=== PATIENT | female | born 1965 | race African-American/Black ===

== ENCOUNTER 2020-02-01 11:13 | Inpatient (IN) | payer MEDICARE, MEDICAID ==
[~2020-02-01] VITALS: Ht 157.5 cm; Wt 83.9 kg
[~2020-02-01 11:13] MED LIST: DILT180C48 PO; HERB1CAP2 PO; IBUP-1008 PO
[2020-02-01] MEDS ORDERED: SODIUM CHLORIDE 0.9% 1,000 ML IV ONE (11:30)
[2020-02-01 12:04] LABS: BASOPHILS % 0.7 % (0.0-2.0); EOSINOPHILS % 0.5 % (0.0-5.0); HEMATOCRIT. 35.3 % (36.0-48.0); HEMOGLOBIN. 11.4 g/dL (12.0-16.0); LYMPHOCYTES % 30.7 % (20.0-50.0); MEAN CORPUSCULAR HEMOGLOBIN 27.5 pg (28.0-32.0); MEAN CORPUSCULAR VOLUME 85.1 fL (81.0-99.0); MEAN PLATELET VOLUME 10.4 fl (7.4-10.4); NEUTROPHILS % 61.1 % (40.0-76.0); PLATELET 333 x1000/uL (130-400); RED BLOOD CELL COUNT 4.15 mill/uL (4.2-5.4); RED CELL DISTRIBUTION WIDTH 15.3 % (11.6-14.6)
[2020-02-01 12:11] LABS: CHLORIDE 108 mEq/L (98-107)
[2020-02-01] MEDS ORDERED: NITROGLYCERIN 0.4MG TABLET SL SL PRN (14:00)
[2020-02-01] MEDS ORDERED: IPRATROPIUM/ALBUTEROL 0.5-3(2.5)MG/3ML NEB NEB PRN (14:00)
[2020-02-01] MEDS ORDERED: MAGNESIUM/ALUMINUM HYDROXIDE/SIMETHICONE 30ML UDC PO PRN (14:00)
[2020-02-01] MEDS ORDERED: ONDANSETRON HCL 4MG/2ML INJ IV PRN (14:00)
[2020-02-01] MEDS ORDERED: GUAIFENESIN 200MG/10ML SUGAR FREE UDC PO PRN (14:00)
[2020-02-01] MEDS ORDERED: KETOROLAC 15MG/ML VIAL IV PRN (14:00)
[2020-02-01] MEDS ORDERED: ACETAMINOPHEN 325MG TABLET PO PRN ×2 (14:00)
[2020-02-01] MEDS ORDERED: TRAMADOL 50MG TABLET PO PRN (14:00)
[2020-02-01 14:02] LABS: ETHANOL BLOOD < 10 mg/dL
[2020-02-01 14:04] LABS: TOTAL IRON BINDING CAPACITY 256 ug/dL (250-450)
[2020-02-01 14:05] LABS: LDL CHOLESTEROL 104 mg/dL (5-100)
[2020-02-01 14:06] LABS: HDL CHOLESTEROL 66 mg/dL (40-59)
[2020-02-01 14:19] LABS: FOLIC ACID (FOLATE) SERUM 7.8 ng/mL (>5.38)
[2020-02-01 14:45] VITALS: BP 175/62
[2020-02-01] MEDS: ENOXAPARIN 40MG/0.4ML SYR SUBCUT SCH (15:19)
[2020-02-01] MEDS: CLONIDINE 0.1MG TABLET PO PRN (15:20)
[2020-02-01 16:32] VITALS: BP 175/62
[2020-02-01] MEDS: DOCUSATE SODIUM 100MG CAPSULE PO PRN (16:35)
[2020-02-01 20:00] VITALS: BP 141/63
[2020-02-01] MEDS: LISINOPRIL 20MG TABLET PO SCH (20:57)
[2020-02-01] MEDS: ASCORBIC ACID 500 MG TABLET PO SCH (20:57)
[2020-02-01] MEDS: FAMOTIDINE 20MG TABLET PO SCH (20:57)
[2020-02-01] MEDS: ZOLPIDEM TARTRATE 5MG TABLET PO PRN (23:09)
[2020-02-01 23:57] LABS: CREATINE KINASE MB FRACTION 1.1 ng/mL (0.5-3.6)
[2020-02-02] VITALS (7 sets, daily range): BP systolic 135–186; BP diastolic 53–79
[2020-02-02] MEDS: CLONIDINE 0.1MG TABLET PO PRN ×2 (04:05→16:31)
[2020-02-02] MEDS ORDERED: HYDR25TA PO (04:14)
[2020-02-02] MEDS ORDERED: BENA20TA10 PO (04:14)
[2020-02-02] MEDS: FAMOTIDINE 20MG TABLET PO SCH ×2 (09:15→21:09)
[2020-02-02] MEDS: ZINC SULFATE 220 MG ( 50 ) CAPSULE PO SCH (09:15)
[2020-02-02] MEDS: ASPIRIN 81MG EC TABLET PO SCH (09:15)
[2020-02-02] MEDS: LISINOPRIL 20MG TABLET PO SCH ×2 (09:16→21:09)
[2020-02-02] MEDS: ASCORBIC ACID 500 MG TABLET PO SCH ×2 (09:16→21:09)
[2020-02-02] MEDS: DOCUSATE SODIUM 100MG CAPSULE PO PRN (09:17)
[2020-02-02] MEDS: ENOXAPARIN 40MG/0.4ML SYR SUBCUT SCH (14:10)
[2020-02-02] MEDS: ZOLPIDEM TARTRATE 5MG TABLET PO PRN (21:09)
[2020-02-03] VITALS: BP 144/67
[2020-02-03 04:00] VITALS: BP 164/86
[2020-02-03 08:00] VITALS: BP 183/67
[2020-02-03] MEDS: ZINC SULFATE 220 MG ( 50 ) CAPSULE PO SCH (09:20)
[2020-02-03] MEDS: FAMOTIDINE 20MG TABLET PO SCH (09:20)
[2020-02-03] MEDS: ASPIRIN 81MG EC TABLET PO SCH (09:20)
[2020-02-03] MEDS: LISINOPRIL 20MG TABLET PO SCH (09:20)
[2020-02-03] MEDS: ASCORBIC ACID 500 MG TABLET PO SCH (09:20)
[2020-02-03 09:52] VITALS: BP 155/65
== END 2020-02-03 10:06 | disposition home or self-care (01) | DRG 149 ==
LOC: ER 11:20 → 5WST 12:57 → EDBEDREQ 12:59 → EDBEDREQTM 12:59 → ENRESERV 14:10
PROVIDERS: ADMIT Internal Medicine; ATTEND Internal Medicine
DX: H81.10 Benign paroxysmal vertigo, unspecified ear (principal); E44.1 Mild protein-calorie malnutrition; M62.82 Rhabdomyolysis; D63.8 Anemia in other chronic diseases classified elsewhere; E83.51 Hypocalcemia; F17.210 Nicotine dependence, cigarettes, uncomplicated; E66.9 Obesity, unspecified; I10 Essential (primary) hypertension; Z68.33 Body mass index [BMI] 33.0-33.9, adult; Z79.899 Other long term (current) drug therapy; R73.9 Hyperglycemia, unspecified
CPT/HCPCS: 36415; 71045; 80053; 80061; 80320; 82550; 82553; 82607; 82746; 83036; 83540; 83550; 83880; 84484; 85025; 86850; 86900; 93005; 93306; 93970; 99285; J1650; J7030; G0480

== ENCOUNTER 2020-09-03 09:10 | Emergency (ER) | payer OTHER, MEDICAID ==
[~2020-09-03] VITALS: Ht 160 cm; Wt 87.0 kg
[~2020-09-03 09:10] MED LIST changes: +BENA20TA10 PO; +HYDR25TA PO
[2020-09-03 10:01] LABS: BASOPHILS % 0.9 % (0.0-2.0); EOSINOPHILS % 1.5 % (0.0-5.0); HEMATOCRIT. 36.5 % (36.0-48.0); HEMOGLOBIN. 12.4 g/dL (12.0-16.0); LYMPHOCYTES % 30.6 % (20.0-50.0); MEAN CORPUSCULAR HEMOGLOBIN 28.1 pg (28.0-32.0); MEAN CORPUSCULAR VOLUME 82.8 fL (81.0-99.0); MEAN PLATELET VOLUME 9.1 fl (7.4-10.4); MONOCYTES % 8.7 % (2.0-8.0); NEUTROPHILS % 58.3 % (40.0-76.0); PLATELET 359 x1000/uL (130-400); RED BLOOD CELL COUNT 4.41 mill/uL (4.2-5.4); RED CELL DISTRIBUTION WIDTH 13.6 % (11.6-14.6)
[2020-09-03 10:07] LABS: CHLORIDE 107 mEq/L (98-107)
[2020-09-03 11:02] VITALS: BP 192/66
== END 2020-09-03 11:34 | disposition home or self-care (01) ==
LOC: ER 09:10
DX: I10 Essential (primary) hypertension (principal); R42 Dizziness and giddiness
CPT/HCPCS: 36415; 80053; 84484; 85025; 93005; 99285

== ENCOUNTER 2022-08-25 12:07 | Emergency (ER) | payer MEDICARE, MEDICAID ==
[~2022-08-25] VITALS: Ht 165.1 cm; Wt 79.0 kg
[~2022-08-25 12:07] MED LIST changes: +APIX5TAB PO; +BENA-8 PO; -BENA20TA10 PO; +DILT180C66 PO; -HYDR25TA PO; -IBUP-1008 PO
[2022-08-25 12:12] VITALS: O2SAT 100
[2022-08-25] MEDS ORDERED: SODIUM CHLORIDE 0.9% 1,000 ML IV ONE (12:30)
[2022-08-25 13:05] LABS: CHLORIDE 110 mEq/L (98-107)
[2022-08-25 13:08] LABS: BASOPHILS % 1.4 % (0.0-2.0); EOSINOPHILS % 0.9 % (0.0-5.0); HEMATOCRIT. 38.3 % (36.0-48.0); HEMOGLOBIN. 12.4 g/dL (12.0-16.0); LYMPHOCYTES % 28.7 % (20.0-50.0); MEAN CORPUSCULAR HEMOGLOBIN 25.8 pg (28.0-32.0); MEAN CORPUSCULAR VOLUME 79.3 fL (81.0-99.0); MEAN PLATELET VOLUME 9.6 fl (7.4-10.4); MONOCYTES % 7.8 % (2.0-8.0); NEUTROPHILS % 61.2 % (40.0-76.0); PLATELET 374 x1000/uL (130-400); RED BLOOD CELL COUNT 4.83 mill/uL (4.2-5.4); RED CELL DISTRIBUTION WIDTH 18.6 % (11.6-14.6)
[2022-08-25 13:56] LABS: CLARITY URINE CLEAR (CLEAR); COLOR URINE DARK YELLOW (YELLOW); KETONES URINE TRACE (NEGATIVE); LEUKOCYTE ESTERASE URINE TRACE (NEGATIVE); NITRITE URINE NEGATIVE (NEGATIVE); OCCULT BLOOD URINE NEGATIVE (NEGATIVE); PH URINE 5.5 (4.5-8.0); PROTEIN URINE TRACE (NEGATIVE); SPECIFIC GRAVITY URINE 1.027 (1.005-1.030)
[2022-08-25 14:20] VITALS: BP 148/68; PULSE 69; RESP 16; TEMP 98.4
== END 2022-08-25 14:55 | disposition home or self-care (01) ==
LOC: ER 12:07
DX: I48.20 Chronic atrial fibrillation, unspecified (principal); I50.9 Heart failure, unspecified; I11.0 Hypertensive heart disease with heart failure; Z98.890 Other specified postprocedural states
CPT/HCPCS: 36415; 71045; 80053; 81003; 84484; 85025; 96360; 99284

== ENCOUNTER 2024-02-10 01:19 | Inpatient (IN) | payer MEDICARE, MEDICAID ==
[~2024-02-10] VITALS: Ht 172.7 cm; Wt 98.9 kg
[2024-02-10] MEDS: DILTIAZEM HCL 5MG/ML 5ML VIAL IV PRN (02:21)
[2024-02-10 02:49] LABS: BASOPHILS % 0.8 % (0.0-2.0); EOSINOPHILS % 0.9 % (0.0-5.0); HEMATOCRIT. 36.4 % (36.0-48.0); HEMOGLOBIN. 11.3 g/dL (12.0-16.0); LYMPHOCYTES % 16.4 % (20.0-50.0); MEAN CORPUSCULAR HEMOGLOBIN 26.4 pg (28.0-32.0); MEAN CORPUSCULAR VOLUME 85.3 fL (81.0-99.0); MEAN PLATELET VOLUME 9.8 fl (7.4-10.4); MONOCYTES % 5.8 % (2.0-8.0); NEUTROPHILS % 76.1 % (40.0-76.0); PLATELET 289 x1000/uL (130-400); RED BLOOD CELL COUNT 4.27 mill/uL (4.2-5.4); RED CELL DISTRIBUTION WIDTH 14.9 % (11.6-14.6); WHITE BLOOD COUNT 10.2 x1000/uL (4.5-11.0)
[2024-02-10 03:06] LABS: CHLORIDE 113 mEq/L (98-107); POTASSIUM 4.4 mEq/L (3.5-5.1); SODIUM 143 mEq/L (136-145)
[2024-02-10 03:07] LABS: CALCIUM 9.4 mg/dL (8.7-10.4); CARBON DIOXIDE 22 mEq/L (21-32)
[2024-02-10 03:12] LABS: CREATININE 1.2 mg/dL (0.6-1.0); GLUCOSE 97 mg/dL (70-105); UREA NITROGEN BLOOD 24 mg/dL (9-23)
[2024-02-10 03:13] LABS: TROPONIN I HIGH SENSITIVITY 22 ng/L (3.0-34)
[2024-02-10 05:36] LABS: TROPONIN I HIGH SENSITIVITY 20 ng/L (3.0-34)
[2024-02-10 06:23] LABS: TROPONIN I HIGH SENSITIVITY 27 ng/L (3.0-34)
[2024-02-10] MEDS ORDERED: MAGNESIUM/ALUMINUM HYDROXIDE/SIMETHICONE 30ML UDC PO PRN (08:00)
[2024-02-10] MEDS ORDERED: DOCUSATE SODIUM 100MG CAPSULE PO PRN (08:00)
[2024-02-10] MEDS ORDERED: CLONIDINE 0.1MG TABLET PO PRN (08:00)
[2024-02-10] MEDS ORDERED: GUAIFENESIN 200MG/10ML SUGAR FREE UDC PO PRN (08:00)
[2024-02-10] MEDS ORDERED: IPRATROPIUM/ALBUTEROL 0.5-3(2.5)MG/3ML NEB HHN PRN (08:00)
[2024-02-10] MEDS ORDERED: ACETAMINOPHEN 325MG TABLET PO PRN ×2 (08:00)
[2024-02-10] MEDS: FUROSEMIDE 40MG/4ML VIAL IV SCH (08:59)
[2024-02-10] MEDS: ASPIRIN 81MG EC TABLET PO SCH (08:59)
[2024-02-10] MEDS: LISINOPRIL 20MG TABLET PO SCH (09:00)
[2024-02-10] MEDS: DILTIAZEM HCL 30MG TABLET PO SCH (09:05)
[2024-02-10] MEDS: PANTOPRAZOLE SODIUM 40 MG/VIAL IV SCH (10:29)
[2024-02-10] MEDS: APIXABAN 5 MG TABLET PO SCH (10:29)
[2024-02-10 11:36] LABS: IRON 63 ug/dL (50-170)
[2024-02-10 11:37] LABS: TRIGLYCERIDE 95 mg/dL (0-150)
[2024-02-10 11:38] LABS: ALANINE AMINOTRANSFERASE 10 IU/L (10-49); LDL CHOLESTEROL 97 mg/dL (5-100)
[2024-02-10 11:39] LABS: ALBUMIN 4.1 g/dL (3.2-4.8); ASPARTATE AMINOTRANSFERASE 17 IU/L (<34); BILIRUBIN DIRECT 0.3 mg/dL (<=3.0); CHOLESTEROL 161 mg/dL (<200); HDL CHOLESTEROL 38 mg/dL (>65); PROTEIN TOTAL 7.5 g/dL (6.0-8.3); TOTAL IRON BINDING CAPACITY 309 ug/dl (250-425)
[2024-02-10 11:41] LABS: T4 FREE 1.25 ng/dL (0.89-1.76); THYROID STIMULATING HORMONE 1.63 uIU/mL (0.55-4.78)
[2024-02-10 13:44] VITALS: BP 134/86; PULSE 99; RESP 20; TEMP 36.696
[2024-02-10] MEDS ORDERED: NALOXONE HCL 0.4MG/ML VIAL IV PRN (14:45)
[2024-02-10 15:59] VITALS: BP 150/81; PULSE 88; RESP 18; TEMP 36.6696; O2SAT 99
[2024-02-10] MEDS: PNEUMOCOCCAL 20-VAL CONJ-DIP CRM 0.5ML IM ONE (16:00)
[2024-02-10 18:48] LABS: CREATINE KINASE 92 IU/L (34-145)
[2024-02-10 18:49] LABS: CREATINE KINASE MB FRACTION < 0.5 ng/mL (0.5-3.6)
[2024-02-10 18:50] LABS: TROPONIN I HIGH SENSITIVITY 26 ng/L (3.0-34)
[2024-02-10 18:53] LABS: INR 1.1
[2024-02-10 20:00] VITALS: BP 139/93; PULSE 89; RESP 18; TEMP 36.6696; O2SAT 100
[2024-02-10] MEDS: LORAZEPAM 0.5MG TABLET PO PRN (20:24)
[2024-02-10] MEDS: ATORVASTATIN CALCIUM 40MG TABLET PO SCH (20:24)
[2024-02-10] MEDS: HYDROCODONE/ACETAMINOPHEN 5/325MG TABLET PO PRN (20:25)
[2024-02-10] MEDS: MAGNESIUM 2 G PREMIX 50 ML IV NR (22:38)
[2024-02-11 04:00] VITALS: BP 100/67; PULSE 80; RESP 18; TEMP 36.6696; O2SAT 100
[2024-02-11 08:00] VITALS: BP 130/71; PULSE 88; RESP 18; TEMP 36.72516; O2SAT 1
[2024-02-11 12:00] VITALS: BP 120/63; PULSE 84; RESP 18; TEMP 36.72516; O2SAT 100
[2024-02-11 12:40] LABS: CARBON DIOXIDE 28 mEq/L (21-32); CHLORIDE 103 mEq/L (98-107); POTASSIUM 4.2 mEq/L (3.5-5.1); SODIUM 140 mEq/L (136-145)
[2024-02-11 12:41] LABS: CALCIUM 9.3 mg/dL (8.7-10.4)
[2024-02-11 12:46] LABS: CREATININE 1.4 mg/dL (0.6-1.0); GLUCOSE 93 mg/dL (70-105); UREA NITROGEN BLOOD 21 mg/dL (9-23)
[2024-02-11 12:47] LABS: ALBUMIN 4.2 g/dL (3.2-4.8)
[2024-02-11 12:48] LABS: BASOPHILS % 0.7 % (0.0-2.0); DIFFERENTIAL COMMENT 0; HEMATOCRIT. 36.4 % (36.0-48.0); HEMOGLOBIN. 11.5 g/dL (12.0-16.0); LYMPHOCYTES % 30.9 % (20.0-50.0); MEAN CORPUSCULAR HEMOGLOBIN 26.8 pg (28.0-32.0); MEAN CORPUSCULAR HGB CONC 31.5 g/dL (31.0-37.0); MEAN CORPUSCULAR VOLUME 84.9 fL (81.0-99.0); MEAN PLATELET VOLUME 10.3 fl (7.4-10.4); MONOCYTES % 8.7 % (2.0-8.0); NEUTROPHILS % 57.7 % (40.0-76.0); PLATELET 315 x1000/uL (130-400); RED BLOOD CELL COUNT 4.29 mill/uL (4.2-5.4); RED CELL DISTRIBUTION WIDTH 14.5 % (11.6-14.6); WHITE BLOOD COUNT 8.1 x1000/uL (4.5-11.0)
[2024-02-11 12:49] LABS: THYROID STIMULATING HORMONE 3.06 uIU/mL (0.55-4.78)
[2024-02-11 16:00] VITALS: BP 159/80; PULSE 97; RESP 18; TEMP 36.6696; O2SAT 100
[2024-02-11 20:00] VITALS: BP 136/57; PULSE 86; RESP 18; TEMP 36.6696; O2SAT 100
[2024-02-12] VITALS: BP 122/56; PULSE 85; RESP 18; TEMP 36.78072; O2SAT 98
[2024-02-12 03:53] VITALS: BP 128/60; PULSE 80; RESP 18; TEMP 36.78072; O2SAT 100
[2024-02-12 08:00] VITALS: BP 105/84; PULSE 75; RESP 18; TEMP 36.114; O2SAT 97
[2024-02-12 10:50] VITALS: BP 110/82; PULSE 80; TEMP 98; O2SAT 100
[2024-02-12 11:03] LABS: BASOPHILS % 0.7 % (0.0-2.0); DIFFERENTIAL COMMENT 0; EOSINOPHILS % 1.4 % (0.0-5.0); HEMATOCRIT. 35.2 % (36.0-48.0); LYMPHOCYTES % 21.5 % (20.0-50.0); MEAN CORPUSCULAR HEMOGLOBIN 26.4 pg (28.0-32.0); MEAN CORPUSCULAR HGB CONC 31.3 g/dL (31.0-37.0); MEAN CORPUSCULAR VOLUME 84.4 fL (81.0-99.0); MEAN PLATELET VOLUME 10.2 fl (7.4-10.4); MONOCYTES % 9.7 % (2.0-8.0); NEUTROPHILS % 66.7 % (40.0-76.0); PLATELET 293 x1000/uL (130-400); RED BLOOD CELL COUNT 4.17 mill/uL (4.2-5.4); RED CELL DISTRIBUTION WIDTH 14.3 % (11.6-14.6); WHITE BLOOD COUNT 9.6 x1000/uL (4.5-11.0)
[2024-02-12 11:28] LABS: CALCIUM 9.2 mg/dL (8.7-10.4); POTASSIUM 4.2 mEq/L (3.5-5.1)
[2024-02-12 11:34] LABS: CREATININE 1.3 mg/dL (0.6-1.0)
[2024-02-12 12:19] VITALS: BP 124/60; PULSE 86; RESP 18; TEMP 36.6696; TEMP 36.66960; O2SAT 100
== END 2024-02-12 13:25 | disposition home or self-care (01) | DRG 291 ==
LOC: ER 01:19 → 7WST 02:55 → EDBEDREQ 03:27 → EDBEDREQSVC 03:27 → EDBEDREQTM 03:27
PROVIDERS: ADMIT Hospitalist; ATTEND Hospitalist
DX: I11.0 Hypertensive heart disease with heart failure (principal); I50.33 Acute on chronic diastolic (congestive) heart failure; N17.0 Acute kidney failure with tubular necrosis; I48.19 Other persistent atrial fibrillation; J44.1 Chronic obstructive pulmonary disease with (acute) exacerbation; D64.9 Anemia, unspecified; E66.9 Obesity, unspecified; F17.210 Nicotine dependence, cigarettes, uncomplicated; F51.04 Psychophysiologic insomnia; I25.2 Old myocardial infarction; K82.9 Disease of gallbladder, unspecified; Z68.33 Body mass index [BMI] 33.0-33.9, adult; Z79.01 Long term (current) use of anticoagulants; Z79.82 Long term (current) use of aspirin; Z79.899 Other long term (current) drug therapy
CPT/HCPCS: 36415; 71045; 80048; 80061; 80076; 82040; 82550; 82553; 83036; 83540; 83550; 83605; 83735; 83880; 84100; 84145; 84439; 84443; 84484; 85025; 93005; 97162; 97165; 99291; J1940; J2470; J3475; J3490